=== PATIENT | female | born 1950 | race Caucasian/White ===

== ENCOUNTER 2018-08-03 06:10 | Day surgery (SDC) | payer MEDICARE ==
[~2018-08-03] VITALS: Ht 165.1 cm; Wt 75.3 kg
[2018-08-03] MEDS ORDERED: NEURONTIN300 MG/CAP PO (06:34)
[2018-08-03] MEDS ORDERED: SYNTHROID 0.0.025 MG PO (06:35)
[2018-08-03] MEDS ORDERED: PRILOSEC 20MG20 MG PO (06:35)
[2018-08-03] MEDS ORDERED: PRINZIDE 12.5 M1 TAB PO (06:36)
[2018-08-03] MEDS ORDERED: LEXAPRO 10MG10 MG PO (06:37)
[2018-08-03 06:47] VITALS: BP 115/82; PULSE 69; TEMP 97.6
--- NOTE | 2018-08-03 06:57 | NUR ---
TO RM AT 0623- CALL LIGHT IN REACH DAUGHTER AT BEDSIDE.
[2018-08-03 08:17] VITALS: BP 130/76; PULSE 56; TEMP 98.1
--- NOTE | 2018-08-03 08:17 | NUR ---
Pt to [facility] via cart from [email or web address]. Pt drowsy, but awakens easily. Pt denies pain or nausea. Pt ambulates to recliner with stand by assistance. Warm blanket provided. Muffin and juice provided. Daughter in room. Will continue to monitor. Call light within reach.
[2018-08-03 08:32] VITALS: BP 137/92; PULSE 58
--- NOTE | 2018-08-03 08:32 | NUR ---
Pt tolerating food and fluids without difficulties. Pt denies needs. Call light within reach.
[2018-08-03 08:47] VITALS: BP 133/75; PULSE 48
--- NOTE | 2018-08-03 08:47 | NUR ---
Pt continues to rest. Denies needs. Call light within reach.
--- NOTE | 2018-08-03 08:55 | NUR ---
Discharge instructions reviewed. Pt voices understanding. IV site discontinued with all parts intact. Pt up to dress. Call light within reach.
--- NOTE | 2018-08-03 09:10 | NUR ---
Pt escorted to private car via wheel chair. Pt accompanied home by her daughter.
== END 2018-08-03 09:10 | disposition home or self-care (01) ==
LOC: SDCO 06:10
DX: Z12.11 Encounter for screening for malignant neoplasm of colon (principal); I10 Essential (primary) hypertension; E03.9 Hypothyroidism, unspecified; K21.9 Gastro-esophageal reflux disease without esophagitis
CPT/HCPCS: G0121; OP; J2704; J7030

== ENCOUNTER 2018-10-22 10:59 | Emergency (ER) | payer MEDICARE ==
[~2018-10-22] VITALS: Ht 165.1 cm; Wt 71.8 kg
[2018-10-22 10:59] VITALS: BP 129/88; TEMP 98.5
[~2018-10-22 10:59] MED LIST: LEXAPRO 10MG10 MG PO; NEURONTIN300 MG/CAP PO; PRILOSEC 20MG20 MG PO; PRINZIDE 12.5 M1 TAB PO; SYNTHROID 0.0.025 MG PO
[2018-10-22] MEDS ORDERED: REGLAN 5MG T5 MG/TAB PO (11:14)
[2018-10-22] MEDS ORDERED: ULTRAM 50MG TAB50 MG PO (11:14)
[2018-10-22] MEDS ORDERED: MOBIC 7.5MG7.5 MG PO (11:15)
[2018-10-22] MEDS ORDERED: OMNICEF 300MG300 MG PO (11:16)
[2018-10-22] MEDS ORDERED: CORICIDIN HBP1 EACH (11:16)
[2018-10-22] MEDS ORDERED: AUGMENTIN 250 M1 TAB PO (11:17)
[2018-10-22 11:38] LABS: BASO % 0.3 % (0.0-2.0); EOS % 0.1 % (0-4.0); GRAN # 4.8 (1.4-6.5); GRAN % 69.8 % (42.2-75.2); HEMATOCRIT 38.4 % (37.0-47.0); HEMOGLOBIN 12.8 g/dl (12.5-16.0); LYMPH # 1.3 (1.2-3.4); LYMPH % 19.4 % (20.0-51.0); MEAN CELL VOLUME 86 fl (80.0-100.0); MEAN CORPUSCULAR HEMOGLOBIN 29 pg (27.0-31.0); MEAN CORPUSCULAR HGB CONC 33 g/dl (33.0-37.0); MEAN PLATELET VOLUME 10.2 fl (7.4-10.4); MONO # 0.7 (0.1-0.6); MONO % 10.1 % (1.7-9.3); PLATELET COUNT 281 K/mm3 (130-400); RED BLOOD COUNT 4.46 M/mm3 (4.10-5.30); REDCELL DISTRIBUTION WIDTH-CV 13.1 % (11.5-14.5)
[2018-10-22 11:44] LABS: ALBUMIN 4.4 gm/dL (3.5-5.0); BILIRUBIN,TOTAL 0.5 mg/dL (0.0-1.0); CALCIUM 9.6 mg/dL (8.4-10.2); CREATININE, serum 0.59 (0.52-1.25); POTASSIUM 3.9 mmol/L (3.4-5.0); TOTAL PROTEIN 8.3 gm/dL (6.4-8.2)
[2018-10-22 13:02] LABS: COLLECTION METHOD CLEAN CATCH
[2018-10-22 13:25] LABS: MUCOUS Present /lpf; PH 9 (5-8); SQUAMOUS EPITHELIAL 0-2 /hpf; URINE APPEARANCE Clear; URINE BACTERIA None Seen /hpf; URINE BILIRUBIN Negative (NEGATIVE); URINE BLOOD Negative (NEGATIVE); URINE COLOR Yellow; URINE GLUCOSE Negative (NEGATIVE); URINE KETONE 1+ (NEGATIVE); URINE LEUKOCYTE ESTERASE Negative (NEGATIVE); URINE NITRATE Negative (NEGATIVE); URINE PROTEIN(semi-quant) 1+ (NEGATIVE); URINE UROBILINOGEN Negative (NEGATIVE)
[2018-10-22] MEDS ORDERED: ZOFRAN ODT4 MG PO (13:52)
[2018-10-22] MEDS ORDERED: PERCOCET 325 MG1 TA2 PO (13:52)
[2018-10-22 14:56] VITALS: PULSE 90
== END 2018-10-22 14:56 | disposition home or self-care (01) ==
LOC: COL.ER 10:59
PROVIDERS: Emergency Medicine
DX: R11.10 Vomiting, unspecified (principal); R10.31 Right lower quadrant pain; R10.32 Left lower quadrant pain; I10 Essential (primary) hypertension; E03.9 Hypothyroidism, unspecified; K21.9 Gastro-esophageal reflux disease without esophagitis; G62.9 Polyneuropathy, unspecified
CPT/HCPCS: J2060; J2405; J2550; J7030; Q9967

== ENCOUNTER 2018-10-24 23:23 | Emergency (ER) | payer MEDICARE ==
[~2018-10-24] VITALS: Ht 165.1 cm; Wt 72.7 kg
[~2018-10-24 23:23] MED LIST changes: +AUGMENTIN 250 M1 TAB PO; +CORICIDIN HBP1 EACH; +MOBIC 7.5MG7.5 MG PO; +OMNICEF 300MG300 MG PO; +PERCOCET 325 MG1 TA2 PO; +REGLAN 5MG T5 MG/TAB PO; +ULTRAM 50MG TAB50 MG PO; +ZOFRAN ODT4 MG PO
[2018-10-24 23:46] VITALS: TEMP 97.8
[2018-10-25 01:36] LABS: BASO % 0.6 % (0.0-2.0); EOS # 0.2 (0.0-0.7); EOS % 2.9 % (0-4.0); GRAN # 2.5 (1.4-6.5); GRAN % 47.2 % (42.2-75.2); HEMOGLOBIN 12.5 g/dl (12.5-16.0); LYMPH # 2.1 (1.2-3.4); LYMPH % 39.7 % (20.0-51.0); MEAN CELL VOLUME 87 fl (80.0-100.0); MEAN CORPUSCULAR HEMOGLOBIN 29 pg (27.0-31.0); MEAN CORPUSCULAR HGB CONC 34 g/dl (33.0-37.0); MONO # 0.5 (0.1-0.6); MONO % 9.2 % (1.7-9.3); PLATELET COUNT 304 K/mm3 (130-400); RED BLOOD COUNT 4.26 M/mm3 (4.10-5.30); REDCELL DISTRIBUTION WIDTH-CV 13.1 % (11.5-14.5)
[2018-10-25 01:49] LABS: ALBUMIN 4.2 gm/dL (3.5-5.0); BILIRUBIN,TOTAL 0.5 mg/dL (0.0-1.0); C-REACTIVE PROTEIN 1.1 mg/dL (0.0-0.9); CALCIUM 9.1 mg/dL (8.4-10.2); CREATININE, serum 0.59 (0.52-1.25); POTASSIUM 3.2 mmol/L (3.4-5.0); TOTAL PROTEIN 7.8 gm/dL (6.4-8.2)
[2018-10-25 02:48] LABS: COLLECTION METHOD CLEAN CATCH
[2018-10-25 02:53] LABS: PH 7 (5-8); SQUAMOUS EPITHELIAL None Seen /hpf; URINE APPEARANCE Clear; URINE BACTERIA None Seen /hpf; URINE BILIRUBIN Negative (NEGATIVE); URINE BLOOD Negative (NEGATIVE); URINE COLOR Straw; URINE GLUCOSE Negative (NEGATIVE); URINE KETONE Negative (NEGATIVE); URINE LEUKOCYTE ESTERASE Negative (NEGATIVE); URINE NITRATE Negative (NEGATIVE); URINE PROTEIN(semi-quant) Negative (NEGATIVE); URINE RBC 0-2 /hpf; URINE UROBILINOGEN Negative (NEGATIVE)
[2018-10-25] MEDS ORDERED: PERCOCET 325 MG1 TA2 PO (03:04)
[2018-10-25] MEDS ORDERED: ZITHROMAX 250M250 MG PO (03:48)
[2018-10-25 05:30] VITALS: BP 157/89; PULSE 62
== END 2018-10-25 05:35 | disposition home or self-care (01) ==
LOC: COL.ER 23:23
PROVIDERS: Physician Assistant
DX: R10.9 Unspecified abdominal pain (principal)
CPT/HCPCS: J0456; J1100; J2270; J2405; J7030; J7050; Q9967

== ENCOUNTER 2019-04-02 17:16 | Emergency (ER) | payer MEDICARE ==
[~2019-04-02 17:16] MED LIST changes: -VANCOCIN H125 MG/CAP PO; -ZOFRAN 4MG T4 MG/TAB PO
[2019-04-02 17:23] VITALS: TEMP 97.7
[2019-04-02 18:20] LABS: BASO % 0.3 % (0.0-2.0); EOS # 0.6 (0.0-0.7); EOS % 4.5 % (0-4.0); GRAN # 9.8 (1.4-6.5); GRAN % 72.6 % (42.2-75.2); HEMATOCRIT 38.1 % (37.0-47.0); HEMOGLOBIN 12.5 g/dl (12.5-16.0); LYMPH # 1.7 (1.2-3.4); LYMPH % 12.8 % (20.0-51.0); MEAN CELL VOLUME 87 fl (80.0-100.0); MEAN CORPUSCULAR HEMOGLOBIN 29 pg (27.0-31.0); MEAN CORPUSCULAR HGB CONC 33 g/dl (33.0-37.0); MEAN PLATELET VOLUME 9.9 fl (7.4-10.4); MONO # 1.3 (0.1-0.6); MONO % 9.4 % (1.7-9.3); PLATELET COUNT 285 K/mm3 (130-400); RED BLOOD COUNT 4.38 M/mm3 (4.10-5.30); REDCELL DISTRIBUTION WIDTH-CV 13.2 % (11.5-14.5)
[2019-04-02 18:26] LABS: ALBUMIN 4.1 gm/dL (3.5-5.0); BILIRUBIN,TOTAL 0.4 mg/dL (0.0-1.0); CALCIUM 8.7 mg/dL (8.4-10.2); CREATININE, serum 0.61 (0.52-1.25); POTASSIUM 3.1 mmol/L (3.4-5.0); TOTAL PROTEIN 7.2 gm/dL (6.4-8.2)
[2019-04-02 19:39] LABS: COLLECTION METHOD CLEAN CATCH
[2019-04-02 19:48] LABS: MUCOUS Present /lpf; PH 5 (5-8); SQUAMOUS EPITHELIAL None Seen /hpf; URINE APPEARANCE Clear; URINE BACTERIA Rare /hpf; URINE BILIRUBIN Negative (NEGATIVE); URINE BLOOD 1+ (NEGATIVE); URINE COLOR Yellow; URINE GLUCOSE Negative (NEGATIVE); URINE KETONE Trace (NEGATIVE); URINE LEUKOCYTE ESTERASE 1+ (NEGATIVE); URINE NITRATE Negative (NEGATIVE); URINE PROTEIN(semi-quant) Negative (NEGATIVE); URINE RBC 0-2 /hpf; URINE UROBILINOGEN Negative (NEGATIVE)
[2019-04-02] MEDS ORDERED: VANCOCIN H125 MG/CAP PO (20:42)
[2019-04-02] MEDS ORDERED: ZOFRAN 4MG T4 MG/TAB PO (20:43)
[2019-04-02 20:51] VITALS: BP 109/78; PULSE 78
== END 2019-04-02 20:51 | disposition home or self-care (01) ==
LOC: COL.ER 17:16
PROVIDERS: Emergency Medicine
DX: A04.72 Enterocolitis due to Clostridium difficile, not specified as recurrent (principal)
CPT/HCPCS: J2405; J7030

== ENCOUNTER → 2019-04-02 | Outpatient (CLI) | payer MEDICARE ==
[~2019-04-02] MED LIST changes: +VANCOCIN H125 MG/CAP PO; +ZITHROMAX 250M250 MG PO; +ZOFRAN 4MG T4 MG/TAB PO
== END ==
LOC: COL.RAD 08:00
DX: Z01.812 Encounter for preprocedural laboratory examination (principal); R91.1 Solitary pulmonary nodule
CPT/HCPCS: Q9967

== ENCOUNTER 2023-04-08 17:54 | Emergency (ER) | payer MEDICARE ==
[~2023-04-08] VITALS: Ht 172.7 cm; Wt 68.2 kg
[~2023-04-08 17:54] MED LIST changes: +VANCOCIN H125 MG/CAP PO; +ZOFRAN 4MG T4 MG/TAB PO
[2023-04-08 17:56] VITALS: TEMP 97.9
[2023-04-08 18:14] LABS: BASO % 0.6 % (0.0-2.0); EOS # 0.2 K/mm3 (0.0-0.7); EOS % 2.6 % (0.0-4.0); GRAN # 3.5 K/mm3 (1.4-6.5); GRAN % 51.3 % (42.2-75.2); HEMATOCRIT 38.2 % (37.0-47.0); HEMOGLOBIN 12.4 g/dl (12.5-16.0); LYMPH # 2.4 K/mm3 (1.2-3.4); LYMPH % 34.9 % (20.0-51.0); MEAN CELL VOLUME 94 fl (80.0-100.0); MEAN CORPUSCULAR HEMOGLOBIN 31 pg (27-31); MEAN CORPUSCULAR HGB CONC 33 g/dl (33.0-37.0); MEAN PLATELET VOLUME 10.3 fl (7.4-10.4); MONO # 0.7 K/mm3 (0.1-0.6); MONO % 10.3 % (1.7-9.3); PLATELET COUNT 233 K/mm3 (130-400); RED BLOOD COUNT 4.06 M/mm3 (4.10-5.30); REDCELL DISTRIBUTION WIDTH-CV 12.7 % (11.5-14.5)
[2023-04-08] MEDS ORDERED: LORazepam 2 MG/ML 1 ML VIAL IV ONE (18:15)
[2023-04-08] MEDS ORDERED: Acetaminophen 500 MG TAB PO ONE (18:30)
[2023-04-08 18:34] LABS: ALBUMIN 3.6 gm/dL (3.4-4.8); BILIRUBIN,TOTAL 0.2 mg/dL (0.2-1.2); CALCIUM 9.4 mg/dL (8.4-10.2); CREATININE, serum 0.71 mg/dL (0.57-1.11); POTASSIUM 3.8 mmol/L (3.5-4.5); TOTAL PROTEIN 6.8 gm/dL (6.2-8.1)
[2023-04-08 20:42] LABS: COLLECTION METHOD CLEAN CATCH
[2023-04-08 20:49] LABS: URINE APPEARANCE CLEAR (CLEAR/HAZY); URINE BLOOD NEGATIVE (NEGATIVE); URINE COLOR YELLOW (YELLOW); URINE GLUCOSE NEGATIVE (NEGATIVE); URINE KETONE NEGATIVE (NEGATIVE); URINE NITRATE NEGATIVE (NEGATIVE); URINE PROTEIN(semi-quant) NEGATIVE (NEGATIVE); URINE UROBILINOGEN 0.2 E.U/dL (0.2-1.0)
[2023-04-08 22:31] VITALS: BP 139/80; PULSE 72
== END 2023-04-08 21:39 | disposition home or self-care (01) ==
LOC: COL.ER 17:54
PROVIDERS: Nurse Practitioner
DX: F41.1 Generalized anxiety disorder (principal); F41.0 Panic disorder [episodic paroxysmal anxiety]; Z79.899 Other long term (current) drug therapy
CPT/HCPCS: J2060

== ENCOUNTER 2023-06-11 17:48 | Emergency (ER) | payer MEDICARE ==
[~2023-06-11] VITALS: Ht 165.1 cm; Wt 68.2 kg
[2023-06-11 17:58] VITALS: TEMP 98.6
[2023-06-11] MEDS ORDERED: LORazepam 2 MG/ML 1 ML VIAL IV ONE (18:45)
[2023-06-11] MEDS ORDERED: NS 1,000 ML IV ONE (18:45)
[2023-06-11 19:23] LABS: BASO % 0.4 % (0.0-2.0); EOS # 0.4 K/mm3 (0.0-0.7); EOS % 5.2 % (0.0-4.0); GRAN # 3.8 K/mm3 (1.4-6.5); GRAN % 53.8 % (42.2-75.2); HEMOGLOBIN 11.7 g/dl (12.5-16.0); LYMPH # 2.4 K/mm3 (1.2-3.4); LYMPH % 33.2 % (20.0-51.0); MEAN CELL VOLUME 94 fl (80.0-100.0); MEAN CORPUSCULAR HEMOGLOBIN 31 pg (27-31); MEAN CORPUSCULAR HGB CONC 33 g/dl (33.0-37.0); MEAN PLATELET VOLUME 11.1 fl (7.4-10.4); MONO # 0.5 K/mm3 (0.1-0.6); MONO % 7.1 % (1.7-9.3); PLATELET COUNT 193 K/mm3 (130-400); RED BLOOD COUNT 3.83 M/mm3 (4.10-5.30); REDCELL DISTRIBUTION WIDTH-CV 12.5 % (11.5-14.5)
[2023-06-11 19:25] LABS: HEMATOCRIT 35.9 % (37.0-47.0)
[2023-06-11 20:04] LABS: ALBUMIN 3.2 g/dL (3.4-4.8); CALCIUM 9.1 mg/dL (8.4-10.2); CREATININE, serum 0.75 mg/dL (0.57-1.11); TOTAL PROTEIN 6.5 g/dl (6.2-8.1)
[2023-06-11 20:17] LABS: BILIRUBIN,TOTAL 0.1 mg/dL (0.2-1.2)
[2023-06-11] MEDS ORDERED: Home LORazepam 0.5 MG #3 TAB/PACK PO ONE (20:30)
[2023-06-11 20:46] VITALS: BP 140/78; PULSE 58
[2023-06-11 20:54] LABS: COLLECTION METHOD CLEAN CATCH
[2023-06-11 21:21] LABS: URINE APPEARANCE CLEAR (CLEAR/HAZY); URINE BLOOD NEGATIVE (NEGATIVE); URINE COLOR YELLOW (YELLOW); URINE GLUCOSE NEGATIVE (NEGATIVE); URINE KETONE TRACE (NEGATIVE); URINE NITRATE NEGATIVE (NEGATIVE); URINE PROTEIN(semi-quant) NEGATIVE (NEGATIVE); URINE UROBILINOGEN 0.2 E.U/dL (0.2-1.0)
[2023-06-11 21:29] LABS: TRICYCLIC ANTIDEPRESS URINE NEGATIVE (NEGATIVE)
[2023-06-11 21:34] LABS: MUCOUS PRESENT (NOT PRESENT); URINE BACTERIA RARE /hpf (NONE SEEN); URINE CALCIUM OXALATE CRYSTAL PRESENT (NOT PRESENT); URINE RBC NONE SEEN /hpf (0-2); URINE WBC 0-2 /hpf (0-2)
== END 2023-06-11 20:51 | disposition home or self-care (01) ==
LOC: COL.ER 17:48
PROVIDERS: Physician Assistant
DX: F41.0 Panic disorder [episodic paroxysmal anxiety] (principal)
CPT/HCPCS: J2060; J7030

== ENCOUNTER → 2023-06-15 | Outpatient (CLI) | payer MEDICARE | LOC: COL.CARD 12:38 | DX: F44.5 Conversion disorder with seizures or convulsions (principal) ==

== ENCOUNTER 2023-12-01 06:13 | Day surgery (SDC) | payer MEDICARE ==
[~2023-12-01] VITALS: Ht 165.1 cm; Wt 63.1 kg
[~2023-12-01 06:13] MED LIST changes: +LR 1,000 ML IV SCH; +Ondansetron 4 MG/2 ML VIAL IV PRN
[2023-12-01] MEDS ORDERED: Lidocaine PF 2% (20 MG/ML) 5 ML VIAL ONE (06:50)
[2023-12-01 08:15] VITALS: BP 141/78; PULSE 52; TEMP 96.8
[2023-12-01 08:30] VITALS: BP 149/82; PULSE 56
[2023-12-01 13:42] VITALS: BP 144/83; PULSE 51; TEMP 97.2
--- NOTE | 2023-12-01 16:01 | NUR ---
0815: Pt arrives to bay 1 via cart. Pt very sleepy, arouses to name, remains on cart for post procedure care. VSS on room air, daughter at bedside. Offered PO muffin/water. IV fluids continue to infuse via gravity. 0835: Dr Chairez in to talk to pt. Discharge instructions reviewed, understanding verbalized, questions invited and answered. 0850: PO tolerated without incident.
== END 2023-12-01 08:58 | disposition home or self-care (01) ==
LOC: SDCO 06:13
DX: K21.9 Gastro-esophageal reflux disease without esophagitis (principal); K44.9 Diaphragmatic hernia without obstruction or gangrene; Z79.899 Other long term (current) drug therapy
CPT/HCPCS: J2704; J7120